=== PATIENT | male | born 1960 | race Two or more races ===

== ENCOUNTER 2019-10-16 13:09 | Emergency (ER) | payer OTHER, MEDICAID ==
[2019-10-16] VITALS (10 sets, daily range): BP systolic 116–131; BP diastolic 66–84
[~2019-10-16] VITALS: Ht 165.1 cm; Wt 59.0 kg
[2019-10-16] MEDS ORDERED: Thiamine 100mg tab ORAL ONE (13:15)
[2019-10-16] MEDS ORDERED: Thiamine 100mg tab ONE (13:41)
--- NOTE | 2019-10-16 13:41 | Emergency Room Report ---
History of Present Illness General Chief Complaint: Suicidal Source: Patient, EMS (Gaurav Coleman MD) Present Illness HPI 59-year-old male presents with acute suicidal ideations, patient has been drinking throughout the day, patient states he is a hospice patient with terminal cancer history is limited secondary to patient being currently intoxicated, he states he wants to kill himself, he was brought in by EMS and police placed him on a 5150, patient denies any chest pain shortness of breath he just states he wants to hurt himself and end it. (Gaurav Coleman MD) Allergies: Coded Allergies: No Known Allergies (Unverified , 10/16/19) Patient History Limited by: medical condition - currently intoxicated Past Medical History: see triage record Social History: Reports: alcohol use Reviewed Nursing Documentation: PMH: Agreed; PSxH: Agreed (Gaurav Coleman MD) Nursing Documentation-PMH Past Medical History: No History, Except For Hx COPD: Yes History Of Psychiatric Problem: Yes - etoh abuse, depression Hx Neurological Problems: Yes - multiple sclerosis Hx Cerebrovascular Accident: Yes (Gaurav Coleman MD) Review of Systems All Other Systems: limited - Currently intoxicated (Guarav Coleman MD) Physical Exam Vital Signs Date Time Temp Pulse Resp B/P (MAP) Pulse Ox O2 Delivery O2 Flow Rate FiO2 10/16/19 13:00 98.1 109 20 121/85 (97) 98 Room Air Sp02 EP Interpretation: reviewed, normal General Appearance: well appearing, no apparent distress, alert Head: normocephalic, atraumatic Eyes: bilateral eye PERRL, bilateral eye EOMI ENT: uvula midline, moist mucus membranes Neck: supple, thyroid normal, supple/symm/no masses Respiratory: lungs clear, no respiratory distress, no retraction, no accessory muscle use Cardiovascular #1: normal peripheral pulses, regular rate, rhythm, no edema, no gallop, no murmur Gastrointestinal: non tender, soft, no guarding, no rebound Musculoskeletal: normal inspection Neurologic: alert, other - Currently intoxicated Psychiatric: other - Suicidal Skin: no rash, warm/dry (Gaurav Coleman MD) Medical Decision Making Diagnostic Impression: Primary Impression: Suicidal ideation ER Course 59-year-old male presents with acute suicidal ideations currently on a 5150, hold, patient is currently intoxicated, pending sobriety, and repeat alcohol level, patient is medically cleared Laboratory Tests Test 10/16/19 13:40 White Blood Count 7.6 K/UL (4.8-10.8) Red Blood Count 5.04 M/UL (4.70-6.10) Hemoglobin 15.1 G/DL (14.2-18.0) Hematocrit 45.7 % (42.0-52.0) Mean Corpuscular Volume 91 FL (80-99) Mean Corpuscular Hemoglobin 30.0 PG (27.0-31.0) Mean Corpuscular Hemoglobin Concent 33.0 G/DL (32.0-36.0) Red Cell Distribution Width 13.2 % (11.6-14.8) Platelet Count 397 K/UL (150-450) Mean Platelet Volume 5.3 FL (6.5-10.1) L Neutrophils (%) (Auto) 38.3 % (45.0-75.0) L Lymphocytes (%) (Auto) 44.8 % (20.0-45.0) Monocytes (%) (Auto) 11.4 % (1.0-10.0) H Eosinophils (%) (Auto) 3.5 % (0.0-3.0) H Basophils (%) (Auto) 2.0 % (0.0-2.0) Sodium Level 144 MMOL/L (136-145) Potassium Level 3.8 MMOL/L (3.5-5.1) Chloride Level 103 MMOL/L (98-107) Carbon Dioxide Level 29 MMOL/L (21-32) Anion Gap 12 mmol/L (5-15) Blood Urea Nitrogen 7 mg/dL (7-18) Creatinine 0.8 MG/DL (0.55-1.30) Estimate Glomerular Filtration Rate > 60 mL/min (>60) Glucose Level 111 MG/DL (74-106) H Calcium Level 9.0 MG/DL (8.5-10.1) Total Bilirubin 0.4 MG/DL (0.2-1.0) Aspartate Amino Transferase (AST) 48 U/L (15-37) H Alanine Aminotransferase (ALT) 71 U/L (12-78) Alkaline Phosphatase 82 U/L (46-116) Total Protein 8.7 G/DL (6.4-8.2) H Albumin 4.4 G/DL (3.4-5.0) Globulin 4.3 g/dL Albumin/Globulin Ratio 1.0 (1.0-2.7) Salicylates Level 2.8 ug/mL (2.8-20) Acetaminophen Level < 2 MCG/ML (10-30) L Serum Alcohol 243 mg/dL (Gaurav Coleman MD) ER Course Patient was endorsed me by Dr. Lehman. Patient on a 5150 pending psychiatric placement. Patient had been medically cleared. (Casimiro Gracia MD) Last Vital Signs Date Time Temp Pulse Resp B/P (MAP) Pulse Ox O2 Delivery O2 Flow Rate FiO2 10/16/19 13:38 98.1 84 20 116/82 100 Room Air (Gaurav Coleman MD) Reevaluation Time: 21:53 Reevaluation Impression Patient signed out to me from Dr. Coleman approximately 2 PM. Briefly, this is a 60-year-old male presenting on 5150 legal status for suicidal ideation. He was intoxicated with an elevated blood alcohol level which was rechecked at 7:30 PM showing significant improvement. He is clinically sober and medically cleared for transfer to psychiatric facility. (Josue Lehman MD) Reevaluation Time: 10:35 I received this patient in signout pending placement to [facility], patient is on a 5150, he is medically clear at this time, as he was pending a urinalysis prior to placement last time, but has since resulted and is unremarkable, so patient is now medically cleared for placement. Patient has now sobered up, and is reporting he is no longer feeling suicidal or having any ideations at all nor plan to hurt himself. I spoke with Dr. Tillman from Psychiatry regarding removing his 5150 hold. She is currently evaluating the patient. Reevaluation Impression Patient is no longer suicidal, Dr. Tillman came and lifted the hold, patient will be discharged after receiving 2 mg of Ativan, his vital signs are stable, he is only minimally tremulous, I do not suspect acute withdrawal. Also has a normal eye exam, normal mental status, and I do not suspect [place]'s encephalopathy. (AMY GARCIA M.D) Disposition: HOME, SELF-CARE Condition: Stable Gaurav Coleman MD Oct 16, 2019 13:41 Josue Lehman MD Oct 16, 2019 21:54 Casimiro Garcia MD Oct 17, 2019 04:40 AMY GARCIA M.D Oct 17, 2019 06:35
[2019-10-16] MEDS ORDERED: LORazepam Inj 2mg/ml 1ml IV ONE (13:45)
[2019-10-16] MEDS ORDERED: DiphenhydrAMINE 50mg/ml Inj IVP ONE (13:45)
[2019-10-16 13:51] LABS: EOSINOPHILS % (AUTO) 3.5 % (0.0-3.0); HEMATOCRIT 45.7 % (42.0-52.0); HEMOGLOBIN 15.1 G/DL (14.2-18.0); LYMPHOCYTES % (AUTO) 44.8 % (20.0-45.0); MEAN CORPUSCULAR VOLUME 91 FL (80-99); MONOCYTES % (AUTO) 11.4 % (1.0-10.0); NEUTROPHILS % (AUTO) 38.3 % (45.0-75.0); PLATELET COUNT 397 K/UL (150-450); RED BLOOD COUNT 5.04 M/UL (4.70-6.10); RED CELL DISTRIBUTION WIDTH 13.2 % (11.6-14.8); WHITE BLOOD COUNT 7.6 K/UL (4.8-10.8)
[2019-10-16 14:13] LABS: ANION GAP 12 mmol/L (5-15); BLOOD UREA NITROGEN 7 mg/dL (7-18); CARBON DIOXIDE 29 MMOL/L (21-32); CHLORIDE 103 MMOL/L (98-107); CREATININE 0.8 MG/DL (0.55-1.30); POTASSIUM 3.8 MMOL/L (3.5-5.1); SODIUM 144 MMOL/L (136-145)
[2019-10-16 14:17] LABS: ALANINE AMINOTRANSFERASE 71 U/L (12-78); ALBUMIN 4.4 G/DL (3.4-5.0); ALKALINE PHOSPHATASE 82 U/L (46-116); ASPARTATE AMINO TRANSFERASE 48 U/L (15-37); BILIRUBIN,TOTAL 0.4 MG/DL (0.2-1.0)
[2019-10-16] MEDS ORDERED: ASPIR 8181 MG ORAL (14:39)
[2019-10-16] MEDS ORDERED: FLUOXETINE HCL20 M2 ORAL (14:39)
[2019-10-16] MEDS ORDERED: TRAMADOL HCL50 MG ORAL (14:39)
[2019-10-16] MEDS ORDERED: LIPITOR20 MG ORAL (14:39)
[2019-10-16] MEDS ORDERED: GABAPENTIN800 MG ORAL (14:39)
[2019-10-16] MEDS ORDERED: ACETAMINOPHEN325 M1 ORAL (14:39)
[2019-10-17 01:46] VITALS: BP 128/74
[2019-10-17 04:03] VITALS: BP 120/82
[2019-10-17 05:50] LABS: APPEARANCE,URINE CLEAR; BILIRUBIN, URINE NEGATIVE (NEGATIVE); COLOR,URINE PALE YELLOW; GLUCOSE, URINE (UA) NEGATIVE (NEGATIVE); KETONES,URINE NEGATIVE (NEGATIVE); LEUKOCYTE ESTERASE ,URINE NEGATIVE (NEGATIVE); NITRITE,URINE NEGATIVE (NEGATIVE); PH,URINE 6.5 (4.5-8.0); PROTEIN,URINE NEGATIVE (NEGATIVE); UROBILINOGEN,URINE NORMAL MG/DL (0.0-1.0)
[2019-10-17 06:14] VITALS: BP 122/76
[2019-10-17 07:25] VITALS: BP 138/85
[2019-10-17] MEDS ORDERED: LORazepam 1mg tab ORAL ONE (11:00)
[2019-10-17 11:40] VITALS: BP 144/82
--- NOTE | 2019-10-17 19:30 | Consultation ---
DATE OF CONSULTATION: 10/17/2019 HISTORY OF PRESENT ILLNESS: The patient is a 59-year-old male with history of alcohol dependence who has been been admitted to the hospital for psychiatric evaluation. Apparently the patient was told that he was going to loose his hospital bed at his board and care therefore he was suicidal. He called the suicide hotline and stated that he wants to end his life. The patient was brought in to the [facility]. He was intoxicated. On admission, he has been sleeping here overnight. Today during the evaluation, the patient is presenting with irritable mood, depressed mood, anxiety. The patient stated that he is not suicidal and he would like to go back to his board and care. The patient stated that he has history of alcohol since he was a baby. He stated that his mother was a life manager and was working around the clock and she would give him alcohol in baby bottle to calm him down. He was being taking care of by his older brother and sister. The patient stated that he would like to be discharged and he is not having any thought of hurting himself. PAST PSYCHIATRIC HISTORY: He has depression and anxiety. Denies psychiatric hospitalization. PAST MEDICAL HISTORY: Significant for severe COPD. ALLERGIES: No known drug allergies. SUBSTANCE ABUSE HISTORY: Significant for alcohol. MENTAL STATUS EXAMINATION: The patient is alert and oriented times self, place, situation, and date. Mood is depressed. Affect is constricted. Congruent with mood. Thought process is linear and goal oriented. Thought content, denies any suicidal or homicidal ideation. Cognition is intact. Insight and judgment fair. ASSESSMENT: [place] I Alcohol dependence. Alcohol withdrawal. Major depressive disorder [place] II Deferred. [place] III As above. [place] IV Low to moderate. [place] IV 60 PLAN: 1. The patient will be given a dose of Ativan p.o. for alcohol withdrawal. His last drink was yesterday. 2. The patient is not any imminent danger to self or others; therefore, we will discontinue the 5150 hold. 3. We will refer the patient to outpatient program. Celsa Tillman M.D. DR: Kian JOB#: [id number] CC:
== END 2019-10-17 11:40 | disposition home or self-care (01) ==
LOC: EDBD 13:09 → EMR 13:35
DX: R45.851 Suicidal ideations (principal); Z86.73 Personal history of transient ischemic attack (TIA), and cerebral infarction without residual deficits; G35 Multiple sclerosis; J44.9 Chronic obstructive pulmonary disease, unspecified; F32.9 Major depressive disorder, single episode, unspecified; F17.200 Nicotine dependence, unspecified, uncomplicated; Z85.9 Personal history of malignant neoplasm, unspecified
CPT/HCPCS: 36415; 80053; 80307; 81003; 85025; 96361; 96374; 96375; 99284; G0480; J1200; J7030